=== PATIENT | male | born 1955 | race Caucasian/White ===

== ENCOUNTER 2017-03-05 15:26 | Inpatient (IN) | payer OTHER, MEDICARE ==
[~2017-03-05] VITALS: Ht 185.4 cm; Wt 83.9 kg
[~2017-03-05 15:26] MED LIST: ASPIRIN EC81 M1 PO; ATIVAN0.5 M1 PO; ATIVAN1 MG PO; DEXTROAMPH SACC30 MG PO; ECOTRIN81 MG PO; FOLIC ACID1 M1 PO; LAMICTAL25 M1 PO; LEVOTHYROXINE50 MCG PO; LIPITOR10 M1 PO; METOPROLOL SUCC50 M2 PO; QUETIAPINE FUM100 MG PO; REMERON30 MG PO; VITAMIN B-1100 MG PO; ZITHROMAX Z-PA250 M1 PO
--- NOTE | 2017-03-05 15:39 | NUR ---
PT WAS FOUND ON THE FLOOR BY HIS SISTER, SHE CALLED [phone] THIS IS HIS THIRD FALL IN THE PAST 48 HRS. HE REPORTS TO BE ETOH FREE X 3. HE REPORTS NO ACUTE COMPLAINTS RATHER AN OLD NECK DISCOMFORT RADIATING TO THE RIGHT ARM SECONDARY TO OLD CERVICAL FUSION.
--- NOTE | 2017-03-05 15:43 | NUR ---
MAY CONTACT HIS SISTER AT [phone]
--- NOTE | 2017-03-05 16:03 | NUR ---
LABS SENT (BLUE,SST,LAV,CHASE)
[2017-03-05 16:10] LABS: ABSOLUTE BASOPHIL COUNT 0 /CUMM (0.0-0.2); ABSOLUTE EOSINOPHIL COUNT 0.1 /CUMM (0.0-0.7); ABSOLUTE GRANULOCYTE CT 5.7 /CUMM (1.4-6.5); ABSOLUTE LYMPH COUNT 1.1 /CUMM (1.2-3.4); ABSOLUTE MONOCYTE COUNT 1.2 /CUMM (0.10-0.60); BASOPHIL % 0.2 % (0.0-2.0); GRANULOCYTE % 70.7 % (42.2-75.2); HEMATOCRIT 40.2 % (42-52); MEAN CORPUSCULAR HGB 32.7 PG (27.0-31.0); MEAN CORPUSCULAR HGB CONC 32.8 G/DL (33.0-37.0); MEAN CORPUSCULAR VOLUME 99.6 FL (80.0-94.0); PLATELET COUNT 355 /CUMM (130-400); RBC DISTRIBUTION WIDTH 15.5 % (11.5-14.5); RED BLOOD CELL CT 4.03 /CUMM (4.70-6.10); WHITE BLOOD CELL COUNT 8.1 /CUMM (4.8-10.8)
--- NOTE | 2017-03-05 17:28 | ED GENERAL ADULT ---
History of Present Illness General Chief Complaint: General Adult Stated Complaint: S/P FALL. Source: patient, old records Exam Limitations: no limitations Vital Signs & Intake/Output Vital Signs & Intake/Output Vital Signs Date Time Temp Pulse Resp B/P B/P Pulse O2 O2 Flow FiO2 Mean Ox Delivery Rate 03/05 1931 97.0 76 24 155/89 98 Room Air 03/05 1855 Room Air Room Air 03/05 1747 97.2 78 20 161/91 99 Room Air 03/05 1529 97.4 80 20 139/95 97 Room Air Allergies Coded Allergies: NSAIDS (Non-Steroidal Anti-Inflamma (ULCERS 02/12/16) Reconcile Medications Albuterol Sulfate (Proair Hfa) 90 MCG HFA.AER.AD 2 PUF INH PRN RESPIRATORY ( Reported) Aspirin (Ecotrin*) 81 MG TABLET.DR 81 MG PO DAILY Heart Health Atorvastatin Calcium 40 MG TABLET 1 TAB PO DAILY CHOLESTEROL (Reported) Dextroamphetamine/Amphetamine (Dextroamp-Amphetamin 30 MG Tab) 30 MG TABLET 1 TAB PO BID ADHD (Reported) Folic Acid 1 MG TABLET 1 MG PO DAILY Vitamin Levothyroxine Sodium 50 MCG TABLET 1 TAB PO DAILY THRYOID (Reported) Metoprolol Succinate 50 MG TAB.ER.24H 1 TAB PO BID HEART/BP (Reported) Mirtazapine 30 MG TABLET 2 TAB PO QPM MENTAL HEALTH (Reported) Quetiapine Fumarate 200 MG TABLET 2 TAB PO QPM MENTAL HEALTH (Reported) Sertraline HCl 50 MG TABLET 1 TAB PO DAILY MENTAL HEALTH (Reported) Core Measure Meds Pre-Hospital aspirin Triage Note: PT WAS FOUND ON THE FLOOR BY HIS SISTER, SHE CALLED [phone] THIS IS HIS THIRD FALL IN THE PAST 48 HRS. HE REPORTS TO BE ETOH FREE X 3. HE REPORTS NO ACUTE COMPLAINTS RATHER AN OLD NECK DISCOMFORT RADIATING TO THE RIGHT ARM SECONDARY TO OLD CERVICAL FUSION. Triage Nurses Notes Reviewed? yes Onset: Just prior to arrival Duration: day(s):, intermittent Timing: recent history Injury Environment: home Severity: moderate Modifying Factors: Improves With: rest. Worsens With: movement. HPI: 2 days prior to admission sister reports patient is followed 3 times unable to get off the floor. The patient complains of chronic shoulder neck and back pain. He denies fever chills nausea vomiting diarrhea abdominal pain chest pain shortness breath headache dysuria rash bleeding. He admits to no alcohol over the last 3 days. Past History Travel History Traveled to [place] past 21 day No Medical History Any Pertinent Medical History? see below for history Neurological: seizure EENT: NONE Cardiovascular: CAD, STENT PLACEMENT 2011 Respiratory: obstructive sleep apnea Gastrointestinal: pancreatitis Hepatic: "ALCOHOLIC LIVER DISEASE" Renal: NONE Musculoskeletal: NONE Psychiatric: alcohol dependence, anxiety, depression Endocrine: hypothyroidism History of MRSA: No History of VRE: No History of CDIFF: No Pneumonia Vaccine: 07/12/12 Tetanus Vaccine: 04/18/13 Surgical History Surgical History: CARDIAC STENTS Psychosocial History Who do you live with Patient/Self Services at Home None What is your primary language German Tobacco Use: Current Daily Use Daily Tobacco Use Amount/Type: => 5 Cigarettes daily Family History Family History, If Any: BROTHER FH: COPD (chronic obstructive pulmonary disease) FHx: colon cancer FHx: diabetes mellitus FATHER FH: heart attack Hx Contributory? No Review of Systems Review of Systems Constitutional: Reports: see HPI, weakness. EENTM: Reports: no symptoms. Respiratory: Reports: no symptoms. Cardiovascular: Reports: no symptoms. GI: Reports: no symptoms. Genitourinary: Reports: no symptoms. Musculoskeletal: Reports: see HPI, back pain, joint pain, neck pain. Skin: Reports: no symptoms. Neurological/Psychological: Reports: no symptoms. Hematologic/Endocrine: Reports: no symptoms. Immunologic/Allergic: Reports: no symptoms. All Other Systems: Reviewed and Negative Physical Exam Physical Exam General Appearance: well developed/nourished, alert, awake, anxious, moderate distress Head: atraumatic, normal appearance Eyes: Bilateral: normal appearance, PERRL, EOMI. Ears, Nose, Throat: normal pharynx, normal ENT inspection Neck: normal inspection, supple, limited range of motion, no midline tenderness Respiratory: normal breath sounds, chest non-tender, no respiratory distress, quiet respiration, lungs clear Cardiovascular: regular rate/rhythm, normal peripheral pulses, norml femoral pulses equa Peripheral Pulses: 4+ carotid (R), 4+ carotid (L) Gastrointestinal: normal bowel sounds, soft, non-tender, no organomegaly Back: normal inspection, no vertebral tenderness Extremities: normal inspection, normal capillary refill, limited range of motion Neurologic/Psych: no motor/sensory deficits, awake, alert, oriented x 3, normal gait, normal mood/affect, 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 Skin: normal color, warm/dry, abrasions on R knee, L calf Lymphatic: no anterior cervical abena Core Measures ACS in differential dx? Yes ASA ordered for poss ACS? No-ACS ruled out CVA/TIA Diagnosis: No Severe Sepsis Present: No Septic Shock Present: No Progress Differential Diagnoses I considered the following diagnoses in my evaluation of the patient: Alcohol withdrawal electrolyte imbalance acute MS Plan of Care: Orders Procedure Date/time Status Regular Diet 03/06 B Active OXYGEN SETUP (GEN) 03/05 2001 Active Saline Lock 03/05 2001 Active Admit to inpatient 03/05 2001 Active Vital Signs 03/05 2001 Active Activity/Ambulation 03/05 2001 Active Code Status 03/[address] HEAD WO IV CONTRAST 03/05 1952 Active XRY-PORTABLE CHEST XRAY 03/05 194 Active Add-on Test (ER Only) 03/05 190 Active EKG 03/05 190 Active Add-on Test (ER Only) 03/05 1726 Active TROPONIN LEVEL 03/05 1602 Complete PROLACTIN 03/05 1602 Complete URINE DRUGS OF ABUSE 03/05 1540 Active ETHANOL 03/05 1540 Complete COMPREHENSIVE METABOLIC PANEL 03/05 1540 Complete CBC WITHOUT DIFFERENTIAL 03/05 1540 Complete Current Medications Sig/Edward Start time Last Medication Dose Stop Time Status Admin Morphine Sulfate 4 MG ONCE ONE 03/05 1630 CAN (Morphine) 03/05 1631 Laboratory Tests 03/05/17 1915: Urine Opiates Screen Pending, Methadone Screen Pending, Barbiturate Screen Pending, Ur Phencyclidine Scrn Pending, Amphetamines Screen Pending, U Benzodiazepines Scrn Pending, Urine Cocaine Screen Pending, Urine Cannabis Screen Pending 03/05/17 1602: Anion Gap 15, Estimated GFR > 60, BUN/Creatinine Ratio 30.0 H, Glucose 84, Calcium 8.9, Total Bilirubin 0.8, AST 55, ALT 44, Alkaline Phosphatase 103, Troponin I 0.01, Total Protein 6.4, Albumin 3.5, Globulin 2.9, Albumin/Globulin Ratio 1.2, Prolactin 7.8, CBC w Diff NO MAN DIFF REQ, RBC 4.03 L, MCV 99.6 H, MCH 32.7 H, RDW 15.5 H, MPV 7.0 L, Gran % 70.7, Lymphocytes % 13.6 L, Monocytes % 14.5 H, Eosinophils % 1.0, Basophils % 0.2, Absolute Granulocytes 5.7, Absolute Lymphocytes 1.1 L, Absolute Monocytes 1.2 H, Absolute Eosinophils 0.1, Absolute Basophils 0, PUBS MCHC 32.8 L, Serum Alcohol < 10.0 Radiology Impression: head ct pending CXR Impression: pending Initial ED EKG: normal axis, normal intervals, normal p-waves, normal QRS complex, nonspecific ST T wave chg Comments: Unable to ambulate with assist of 2. Departure Departure Disposition: STILL A PATIENT Condition: Stable Clinical Impression Primary Impression: Frequent falls Secondary Impressions: Alcohol dependence Qualifiers: Substance use status: other alcohol-induced disorder Qualified Code : F10.288 - Alcohol dependence with other alcohol-induced disorder Chronic pain syndrome Multifactorial gait disorder Referrals: NASRIN ROMERO MD (PCP/Family) Departure Forms: Customer Survey General Discharge Information Admission Note Spoke With: DAMIAN KIM MD Documentation of Exam: Documentation of any treatments & extenuating circumstances including Concerns Regarding Discharge (functional status, medication knowledge or non-compliance, living conditions, etc.) that warrant an admission rather than observation: Physical therapy medication adjustment benzodiazepine to prevent alcohol withdrawal continuing care discharge planning analgesia for chronic joint pain Critical Care Note Critical Care Note Critical Care Time: non-applicable
[2017-03-05] MEDS ORDERED: ATORVASTATIN CA40 M1 PO (17:29)
[2017-03-05] MEDS ORDERED: DEXTROAMP-AMPHE30 MG PO (17:29)
[2017-03-05] MEDS ORDERED: SERTRALINE HCL50 MG PO (17:30)
[2017-03-05] MEDS ORDERED: QUETIAPINE FUM200 M1 PO (17:31)
[2017-03-05] MEDS ORDERED: MIRTAZAPINE30 M2 PO (17:31)
[2017-03-05] MEDS ORDERED: PROAIR HFA8.5 GM INH (17:32)
--- NOTE | 2017-03-05 17:56 | NUR ---
PT CONTINUES TO SLEEP WITH NORMAL RR NOTED. PER PROVIDER, PT NOT TO RECEIVE MORPHINE AT THIS TIME.
--- NOTE | 2017-03-05 18:56 | NUR ---
PT ATTEMPTED TO AMBULATE WITH WALKER, UNSTEADY GAIT NOTED. PT REPORTS THAT HE HAS NOT BEEN ABLE TO AMBULATE AT HOME WITH WALKER AND RECENTLY FELL MULTIPLE TIMES IN THE LAST THREE DAYS. REPORTS HE HAS BEEN "CRAWLING" TO GET AROUND AT HOME.
--- NOTE | 2017-03-05 19:27 | NUR ---
ASSUMED PRIMARY CARE. PANTS UNDERWEAR REMOVED, SHIRT, PANTS{SWAETS} SHIRT AND WALLET PLACED IN VALUABLES BAG. HEAD TO TOE; GLASSES ON NO ABRASIONS NOTED TO HEAD OR FACE BILAT ARMS WITH ABRASIONS, REDDENED AREAS NOTED TO BILAT UPPER ARMS AND ELBOWS, SMALL ABRASIONA AT ELBOWS. ABD WITHOUT REDNESS, LUIS DANIEL AREA CLEAN NO REDNESS. ST CATH FOR 200 CCS CONCENTRATED URINE. L EG WITH 2X2 AREA SCABBED OVER ULCERATION TO OUTER ASPECT BELOW KNEE, R LEG WITH 1X2 SCABBED ABRAISED AREA NOTED TO MEDIAL SIDE AND KNEE NONDRAINING. BI;AT HIPS RED NOT OPEN BUTTOCKS RED EXCORIATED NOT OPEN. ALERT MENTATING WELL. NO VISABLE TREMORS.
--- NOTE | 2017-03-05 21:07 | History & Physical ---
EL DOUGHERTY 03/05/177: General Information and HPI MD Statement: I have seen and personally examined SANDIE RODRIGES and documented this H&P. The patient is a 61 year old M who presented with a patient stated chief complaint of [ALCOHOL DETOX]. Source of Information: patient Exam Limitations: no limitations History of Present Illness: 61-year-old male with a past medical history of coronary artery disease status post stent placement in 2011, ADHD, hypothyroidism, depression, alcohol dependence, VERONIKA noncompliant with nocturnal CPAP, was brought to the ER by his sister after he had 3 mechanical falls within the past day. History is obtained from the patient. According to the patient has been having difficult time maintaining his balance. He states that he has no strength in his upper body since October which has been progressively worsening. Over the last few days more so within the past week he's had several falls. Of note, he uses a rolling desk chair for ambulation and his falls for the most part have been mechanical 2/2 to the wheels getting stuck. He denies hitting his head, losing consciousness, chest pain, fever, chills, palpitations, dizziness prior to falls. He does state that he has a normal appetite and has been eating and drinking fine. He does however endorse occasional cough and sputum production that is nonpurulent. Of note he has chronic right shoulder pain and has increased difficulty abducting it. He states that he fell down yesterday and was unable to get up for almost 7-8 hours. He lives by himself and it was not until his sister arrived this morning that she saw him and brought him to the ER. Of note he does have a history of alcohol abuse and states that his last drink was 3 days ago. He denies any seizure-like activities. He is a smoker smoking half pack per day. He drinks about 6 drinks of beer every week. Currently denies suicidal ideation and homicidal ideation. Allergies/Medications Allergies: Coded Allergies: NSAIDS (Non-Steroidal Anti-Inflamma (ULCERS 02/12/16) Home Med list Albuterol Sulfate (Proair Hfa) 90 MCG HFA.AER.AD 2 PUF INH PRN RESPIRATORY ( Reported) Aspirin (Ecotrin*) 81 MG TABLET. 81 MG PO DAILY Heart Health Atorvastatin Calcium 40 MG TABLET 1 TAB PO DAILY CHOLESTEROL (Reported) Dextroamphetamine/Amphetamine (Dextroamp-Amphetamin 30 MG Tab) 30 MG TABLET 1 TAB PO TID ADHD (Reported) Folic Acid 1 MG TABLET 1 MG PO DAILY Vitamin Levothyroxine Sodium 50 MCG TABLET 1 TAB PO DAILY THRYOID (Reported) Metoprolol Succinate 50 MG TAB.ER.24H 1 TAB PO BID HEART/BP (Reported) Mirtazapine 30 MG TABLET 2 TAB PO QPM MENTAL HEALTH (Reported) Quetiapine Fumarate 200 MG TABLET 2 TAB PO QPM MENTAL HEALTH (Reported) Sertraline HCl 50 MG TABLET 1 TAB PO DAILY MENTAL HEALTH (Reported) Compliance With Home Meds: GOOD Past History Travel History Traveled to [place] past 21 day No Medical History Neurological: seizure EENT: NONE Cardiovascular: CAD, STENT PLACEMENT 2011 Respiratory: obstructive sleep apnea Gastrointestinal: pancreatitis Hepatic: "ALCOHOLIC LIVER DISEASE" Renal: NONE Musculoskeletal: NONE Psychiatric: alcohol dependence, anxiety, depression Endocrine: hypothyroidism History of MRSA: No History of VRE: No History of CDIFF: No Pneumonia Vaccine: 07/12/12 Tetanus Vaccine: 04/18/13 Surgical History Surgical History: CARDIAC STENTS Past Family/Social History Family History Relations & Conditions if any BROTHER FH: COPD (chronic obstructive pulmonary disease) FHx: colon cancer FHx: diabetes mellitus FATHER FH: heart attack Psychosocial History Where do you live? Home Who Do You Live With? self Services at Home: None Primary Language: Malawian Functional Ability ADLs Independent: dressing, eating, toileting, bathing. Ambulation: desk chair Review of Systems Review of Systems Constitutional: Reports: chills, weakness. Denies: diaphoresis, fever, malaise. EENTM: Denies: visual changes. Cardiovascular: Denies: chest pain, edema, orthopena, palpitations, peripheral edema, syncope. Respiratory: Reports: cough, sputum production. Denies: hemoptysis, orthopnea, short of breath, stridor, wheezing. GI: Denies: abdominal pain, constipation, diarrhea, nausea, changes in stool, vomiting. Genitourinary: Reports: no symptoms. Musculoskeletal: Reports: joint pain, neck pain. Denies: back pain, joint swelling. Neurological/Psychological: Reports: weakness. Denies: headache, numbness, paresthesia, tingling, tremors. Exam & Diagnostic Data Last 24 Hrs of Vital Signs/I&O Vital Signs Date Time Temp Pulse Resp B/P B/P Pulse O2 O2 Flow FiO2 Mean Ox Delivery Rate 03/05 2122 97.4 100 20 164/82 99 Room Air 03/05 1931 97.0 76 24 155/89 98 Room Air 03/05 1855 Room Air Room Air 03/05 1747 97.2 78 20 161/91 99 Room Air 03/05 1529 97.4 80 20 139/95 97 Room Air Intake & Output 03/05 1600 03/05 0800 03/05 0000 Intake Total Output Total Balance Patient 185 lb Weight Weight Reported by Patient Measurement Method Physical Exam General Appearance Alert, Oriented X3, Cooperative Skin HAS A 3CM X4CM RUG MCDANIEL LOCATED ALONG TH EMEDIAL ASPECT OF TH ERIGHT KNE AND ANTREOLATERAL ASPECT OF LEFT TIBIA. MULTIPLE SKIN ABRASIONS ALONG THE [place]. HAS A RUG BURN MEASURING 2CM X3CM LOCATED ALONG THE RIGHT WRIST JOINT. Skin Temp/Moisture Exam: Warm/Dry HEENT Atraumatic, PERRLA, EOMI, DRY MUCOUS MEMBRANES Neck Supple, No JVD, No thryomegaly, +2 Carotid Pulse wo Bruit, No LAD Cardiovascular Regular Rate, Normal S1, Normal S2, No Murmurs Lungs Clear to Auscultation, Normal Air Movement Abdomen Normal Bowel Sounds, Soft, No Tenderness Neurological Normal Speech, Normal Tone, Sensation Intact, Cranial Nerves 3-12 NL, Reflexes 2+, STRENGTH 3/5 IN RUE, 4/5 IN LUE, 4/5 IN LE'S Extremities No Edema, No Tenderness/Swelling, HAS AMPUTATION OF LEFT GREAT TOE Vascular Normal Pulses, Pulses Symmetrical Last 24 Hrs of Labs/Lex: Laboratory Tests 03/05/17 1915: Urine Opiates Screen < 100.00, Methadone Screen 68, Barbiturate Screen < 60, Ur Phencyclidine Scrn < 6.00, Amphetamines Screen > 1450 H, U Benzodiazepines Scrn < 85, Urine Cocaine Screen < 50, Urine Cannabis Screen < 5.00 03/05/17 1602: Anion Gap 15, Estimated GFR > 60, BUN/Creatinine Ratio 30.0 H, Glucose 84, Calcium 8.9, Magnesium 1.6, Total Bilirubin 0.8, AST 55, ALT 44, Alkaline Phosphatase 103, Creatine Kinase 662 H, Troponin I 0.01, Total Protein 6.4, Albumin 3.5, Globulin 2.9, Albumin/Globulin Ratio 1.2, Vitamin B12 Pending, Folate Pending, TSH Pending, Prolactin 7.8, CBC w Diff NO MAN DIFF REQ, RBC 4.03 L, MCV 99.6 H, MCH 32.7 H, RDW 15.5 H, MPV 7.0 L, Gran % 70.7, Lymphocytes % 13.6 L, Monocytes % 14.5 H, Eosinophils % 1.0, Basophils % 0.2, Absolute Granulocytes 5.7, Absolute Lymphocytes 1.1 L, Absolute Monocytes 1.2 H, Absolute Eosinophils 0.1, Absolute Basophils 0, PUBS MCHC 32.8 L, Serum Alcohol < 10.0 Diagnostic Data EKG Results Normal sinus rhythm with a heart rate of 76, WV interval of 140, Q waves in II, III and aVF with normal axes no ST-T changes with a QTC of 450. CXR Results FINDINGS: Normal cardiomediastinal silhouette and pulmonary vascularity. Clear lungs. No pleural effusions or pneumothorax. Old healed right seventh rib fracture. Deformity of the right humeral head, a new finding since the comparison chest x-ray. IMPRESSION: No acute cardiopulmonary findings. Other Results SERVICE DATE: 03/05/17 EXAM TYPE: CAT - CT HEAD WO IV CONTRAST FINDINGS: There is no evidence of acute intracranial hemorrhage or territorial infarction. No abnormal mass effect or midline shift is seen. Walker to white matter differentiation is well preserved. No extra-axial fluid collections are identified. The ventricles are normal in size. There is no abnormal attenuation within the brain parenchyma. The osseous structures and soft tissues are normal. The mastoid air cells and visualized portions of the paranasal sinuses are well aerated. IMPRESSION: No acute intracranial abnormality. Assessment/Plan Assessment: 61-year-old male with a past medical history of alcohol dependence/alcohol withdrawal questionable seizures, coronary artery disease status post stent placement in 2011, history of proximal A. fib on anticoagulation, hypothyroidism , hyperlipidemia, obstructive sleep apnea, depression, history of pancreatitis, seizure disorder and alcoholic liver disease was sent to the ED after he had a fall. Vitals on admission blood pressure 155/89, respiratory rate 24, pulse 76, afebrile saturating 98% on room air. Labs pertinent for normal white blood cell count of 8100, macrocytic anemia with an H&H of 13.2/40.2, MCV of 99.6 with a normal platelet count of 355,000. Chemistries revealed a sodium of 140, potassium of 3.5, bicarbonate of 23, anion gap of 15, BUN 15 with a creatinine of 0.5. Serum glucose of 84. And magnesium of 1.6. LFTs unremarkable with an AST/AST of 55/44, total bili of 0.8, CK elevated to 662 with first set of troponin negative at less than 0.01. Serum prolactin was within normal limits at 7.8. U tox was positive for amphetamines, and his serum alcohol level less than 10. A chest x-ray Normal cardiomediastinal silhouette and pulmonary vascularity. Clear lungs. No pleural effusions or pneumothorax. Old healed right seventh rib fracture. Deformity of the right humeral head, a new finding since the comparison chest x-ray. CT head without IV contrast showed no acute intracranial abnormality EKG revealed: Normal sinus rhythm with a heart rate of 76, WV interval of 140, Q waves in II, III and aVF with normal axes no ST-T changes with a QTC of 450. Echocardiogram done on 02/15/2016 revealed normal left ventricular ejection fraction estimated at 55-60%, hypokinetic anterior wall, moderate aortic sclerosis, no valvular stenosis, physiologic pericardial effusion. Assessment and plan Admit patient to general medicine for physical deconditioning # Generalized weakness and physical deconditioning in the setting of frequent mechanical falls. Most likely secondary to inability to maneuver his R shoulder PT OT eval in a.m. Of note patient lives by himself and benefits from being in a nursing facility. Check for orthostatic vitals Hydrate patient for now with normal saline 75 MLS x1. #Left and right shoulder pain Follow-up x-rays of both shoulders F/U orthopedic consult in a.m. #Alcohol dependence Last drink was 3 days ago reportedly. Of note his serum alcohol level is less than 10 Start him on Ativan 2 mg every 6 Continue on Ativan per CIWA Continue folic acid supplementation #Coronary artery disease Continue aspirin 81 mg daily, metoprolol succinate 50 mg twice a day, atorvastatin 40 mg daily. #Hypothyroidism Continue on levothyroxine 0.05 mg daily Follow-up TSH and free T4 #Megaloblastic anemia Most likely secondary to nutritional deficiency from vitamin B12 and folic acid Follow-up TSH, and vitamin B12 and folic acid Continue on folic acid supplementations #History of depression Continue Zoloft 50 mg daily, Seroquel 200 mg at bedtime, mirtazapine 60 mg at bedtime #ADHD Patient is on dextroamphetamine/amphetamines 30 mg 3 times a day Of note pharmacy does not carry. Have patient recanted and from home. - Diet Heart healthy DVT prophylaxis Heparin 5000 international units 3 times a day subcutaneous CODE STATUS Full code As Ranked By This Provider Problem List: 1. Frequent falls 2. Alcohol dependence Qualifiers Substance use status: other alcohol-induced disorder Qualified Code: F10.288 - Alcohol dependence with other alcohol-induced disorder Core Measures/Miscellaneous Acute Coronary Syndrome ACS Diagnosis: No Cerebrovascular Accident CVA/TIA Diagnosis: No Congestive Heart Failure CHF Diagnosis: No Venous Thromboembolism VTE Risk Factors: Age > 40 No [facility] VTE prophylaxis d/t: No contraindications No VTE Pharm Prophylaxis d/t: No contraindications VTE Diagnosis: No VTE Type: NONE VTE Confirmed by (Test): NONE Severe Sepsis Severe Sepsis Present: No Septic Shock Septic Shock Present: No Miscellaneous Documentation Attending Case Discussed With: Dr. Warner Primary Care Physician: NASRIN ROMERO MD Patient sees these Specialists - Cardio Dr. Espinoza - Ortho Dr. Christian Bañuelos in [facility] Level of Patient Care: General Medicine Consults Needed: Consulting Specialty: Orthopedics Resident Review Statement Resident Statement: admitted by resident DAMIAN KIM 03/06/17 0129: Attending MD Review Statement Attending Statement Attending MD Statement: examined this patient, discuss w/resident/PA/CARPENTER SUPERVISOR, agreed w/resident/PA/CARPENTER SUPERVISOR, reviewed EMR data (avail), reviewed images, amended to note Attending Assessment/Plan: CC: Falls PMH: Alcoholism, questionable seizures, CAD S/P stent, paroxysmal A. fib not on anticoagulation, hypothyroidism, HLD, VERONIKA not on CPAP, depression, ADHD Patient's sister called 911 after she found him on the floor. According to patient he fell at least 3 times in last 2-3 days, describes this as a mechanical fall, he uses a rolling desk chair at home for ambulation, it slid and got stuck and then he fell down. Because his right shoulder is very painful and he cannot move it he could not push himself up and had to crawl in. Today the when he fell, he could not even get up so he called his sister. He denies any loss of consciousness, palpitations, chest pain at the time of fall. Heavy alcohol drink, last used 3 days back according to him. According to him "I have bad right shoulder since long and now it's getting worse can't even move, now neck hurts and left shoulder started hurting". Vitals: Afebrile, pulse, RRR, blood pressure, O2 saturation within acceptable range On exam: A O 3, cooperative, no acute distress, neck supple, JVD normal, no lymphadenopathy, mucosa moist, no dependent edema. CVS: S1-S2, RRR. RS: Clear to auscultate bilaterally. Abdomen: Soft, NT, ND, bowel sounds present. Patient has multiple superficial lacerations and abrasions in different stages of healing without signs of infection. Strength bilateral lower extremity 5/5, left upper extremity strength intact, mild limitation ROM on left shoulder, left elbow and wrist movement intact. Right shoulder severely restricted movements for abduction flexion, joint deformity, range of motion intact in elbow and wrist on right, medial aspect of right wrist has a superficial abrasion with mild surrounding redness and bony tenderness. Labs: CBC, BMP, LFT, troponin unremarkable CT head and CXR 1. No acute intracranial abnormality. 2. No acute cardiopulmonary findings. On 02/17/2017: MRI cervical spine 1. There has been interval development of anterolisthesis of C5 on C6. There is severe right and moderate left foraminal narrowing. There is no spinal cord compression. 2. There has been interval increase in the disc protrusions at C3-C4 and C4-C5. There is compression of the spinal cord at both these levels. There is moderate central stenosis at C3-C4 and [id number] central stenosis at C4-C5. 3. There is multilevel foraminal narrowing which appears most severe at C3-C4 and C4-C5, with milder narrowing at multiple other levels as described above. 4. There is equivocal signal within the spinal cord at C4-C5, which may be consistent with developing myelomalacia. 5. There are stable changes from ACDF at C6-C7. MRI right shoulder 1. Humeral head resorption with associated osseous fragments, diffuse proximal humerus and superior glenoid marrow edema, and a large joint effusion with synovitis/debris. These findings could be the sequela of a neuropathic joint, posttraumatic resorption, or a septic joint. 2. Supraspinatus and infraspinatus tendinosis. Subscapularis tendinosis with articular surface partial tearing. 3. Proximal biceps tendinosis. 4. Severe acromioclavicular osteoarthritis and lateral subacromial spurring. Subacromial subdeltoid bursitis. 5. Diffuse degenerative tearing of the labrum. A and P Patient had 3 mechanical falls, no loss of consciousness, no syncopal or presyncopal episodes. Patient is unable to get up from the floor because of severe shoulder pain left more than right. Right shoulder has limited ROM, and above mentioned MRI findings. + Intractable shoulder pain + Mechanical fall + Alcoholism + right wrist medial aspect mild redness and bony tenderness + History of seizure, CAD, paroxysmal A. fib, hypothyroidism, HLD, VERONIKA not on CPAP, depression and ADHD - Admit to general medicine - Advance diet as tolerated - Continue gentle hydration for 1-1.5 then DC fluids - Orthopedic consult in a.m. for severe right shoulder pain - OT PT evaluation - Scheduled and when necessary Ativan for alcohol withdrawal according to CIWA protocol - Nutritional supplementation with thiamine and folic acid - X-ray right shoulder, right wrist - Continue all his home medications - Patient will need replacement in rehabilitation as he is unable to take care of himself, cannot sit up without assistance secondary to shoulder pain. - DVT prophylaxis with Lovenox, adequate pain control
--- NOTE | 2017-03-05 21:29 | NUR ---
MEAL TRAY GIVEN
--- NOTE | 2017-03-05 21:33 | RADIOLOGY REPORT ---
EXAMINATION: XR PORTABLE CHEST CLINICAL INFORMATION: Pneumonia, weakness COMPARISON: 02/15/2016 x-ray TECHNIQUE: Portable frontal view of the chest was obtained. FINDINGS: Normal cardiomediastinal silhouette and pulmonary vascularity. Clear lungs. No pleural effusions or pneumothorax. Old healed right seventh rib fracture. Deformity of the right humeral head, a new finding since the comparison chest x-ray. IMPRESSION: No acute cardiopulmonary findings.
--- NOTE | 2017-03-05 21:43 | NUR ---
EATING DINNER PER DR LINDSEY, HOUSESTAFF AT BEDSIDE, REQUEST THAT CT WAIT UNTIL EVAL COMPLETE.
--- NOTE | 2017-03-05 22:18 | NUR ---
BED ASSIGNMENT [id number]
--- NOTE | 2017-03-05 22:19 | NUR ---
REPORT TO MARIFER LEPE TO HAVE AT 2200 MEDS THEN CAN GO UP, PHARMACY AWARE, BUSY MIXING ANNABELAN
--- NOTE | 2017-03-05 22:58 | NUR ---
PT AT CT WILL MEDICATE AND THEN TRANSFER TO FLOOR.
--- NOTE | 2017-03-05 23:23 | CT SCAN REPORT ---
EXAMINATION: CT HEAD WITHOUT CONTRAST CLINICAL INFORMATION: Frequent falls. Weakness. COMPARISON: Noncontrast head CT 07/19/2016. TECHNIQUE: Contiguous axial imaging was performed from the skull base to vertex without intravenous administration of contrast. DLP: 711 mGy-cm FINDINGS: There is no evidence of acute intracranial hemorrhage or territorial infarction. No abnormal mass effect or midline shift is seen. Walker to white matter differentiation is well preserved. No extra-axial fluid collections are identified. The ventricles are normal in size. There is no abnormal attenuation within the brain parenchyma. The osseous structures and soft tissues are normal. The mastoid air cells and visualized portions of the paranasal sinuses are well aerated. IMPRESSION: No acute intracranial abnormality.
[2017-03-06] VITALS: BP 147/76
--- NOTE | 2017-03-06 01:32 | Admission Certification ---
Admission Certification Certification Statement - As attending physician, I certify that at the time of - admission, based on clinical presentation, severity of - symptoms, need for further diagnostic testing and - therapeutic interventions, and risk of adverse outcomes - without in-hospital treatment, in my clinical assessment, - this patient requires an acute hospital stay for a minimum - of two nights or longer. I have also considered psychsocial - factors such as support system, advanced age, financial - issues, cognitive issues, and failed out-patient treatments, - past re-admission history, safety of patient, and lack of - compliance as applicable. Specific rationale supporting this admission is: Intractable right shoulder pain, related limited ambulation
--- NOTE | 2017-03-06 02:46 | NUR ---
PT ARRIVED TO FLOOR AT 23OO VIA STRETCHER WITH DISTRIBUTION STAFF. PT A/OX3, RA, BP 147/76 P 101 T 98.4 R 18 SPO2 94%. MULTIPLE ABRASIONS TO ELBOWS, ARMS, AND KNEES. SCABS TO L AND R KNEE WITH 4X4 LEIA. NECROTIC SPOTS TO R GREAT TOE AND 2ND TOE, L 2ND TOE AND GREAT TOE AMPT. NONBLANCHABLE AREAS TO BOTTOCK AND KELSIE HIPS. PT C/O PAIN 9/10 TO R SHOULDER (SEE EMAR). IVF PER ORDER, ALPS PER ORDER, BED ALARM IN PLACE, CALL REY IN REACH. WILL CONTINUE TO MONITOR
[2017-03-06 04:00] VITALS: BP 138/72
[2017-03-06 06:53] VITALS: BP 111/57
[2017-03-06 07:53] LABS: ABSOLUTE BASOPHIL COUNT 0 /CUMM (0.0-0.2); ABSOLUTE EOSINOPHIL COUNT 0.2 /CUMM (0.0-0.7); ABSOLUTE GRANULOCYTE CT 3.1 /CUMM (1.4-6.5); ABSOLUTE LYMPH COUNT 1.8 /CUMM (1.2-3.4); ABSOLUTE MONOCYTE COUNT 1.2 /CUMM (0.10-0.60); BASOPHIL % 0.5 % (0.0-2.0); EOSINOPHIL % 3.1 % (0-5); HEMATOCRIT 37.6 % (42-52); MEAN CORPUSCULAR HGB 32.7 PG (27.0-31.0); MEAN CORPUSCULAR HGB CONC 32.8 G/DL (33.0-37.0); MEAN CORPUSCULAR VOLUME 99.6 FL (80.0-94.0); MEAN PLATELET VOLUME 7.6 FL (7.4-10.4); PLATELET COUNT 325 /CUMM (130-400); RBC DISTRIBUTION WIDTH 15.1 % (11.5-14.5); RED BLOOD CELL CT 3.78 /CUMM (4.70-6.10); WHITE BLOOD CELL COUNT 6.3 /CUMM (4.8-10.8)
--- NOTE | 2017-03-06 09:24 | PN- Orthopedic ---
Surgical Brief Attending Note Brief Attending Note: Orthopedics was called for consult on this patient for right shoulder pain. This patient is well-known to [facility] and is being followed by my partner Dr. Phu Espinoza. In fact Dr. Espinoza ordered an MRI 2 weeks ago his right shoulder and has seen him since that. At this point there is no need for inpatient consultation or intervention for his right shoulder pain. He has a chronic problem in the right shoulder consisting of severe erosion of the gleno humeral joint as well as tenderness and soft tissue problems. This patient be managed for his right shoulder pain as an outpatient.
--- NOTE | 2017-03-06 10:48 | RADIOLOGY REPORT ---
EXAMINATION: CR SHOULDER, RIGHT CR RIGHT WRIST CLINICAL INFORMATION: Swelling and erythema of right wrist. Evaluate for fracture. Right shoulder pain and difficulty abduction. Evaluate for fracture. COMPARISON: Right shoulder MRI scan dated 02/17/2017. Right shoulder films dated 11/26/2016. Right hand films dated 05/08/2009. TECHNIQUE: Three views of the right shoulder. 4 views of the right wrist. FINDINGS: RIGHT SHOULDER: Again seen is marked resorption or possible resection of the articular surface of the right humeral head with abnormal widening of the glenohumeral joint space seen. Small bone fragment is seen along the posterior and inferior margin of the glenohumeral joint. The acromioclavicular joint remains intact and demonstrates minimal bursal surface spurring and moderate non bursal surface spurring. Old healed fracture deformity of a mid lateral right rib is noted (likely the seventh rib). RIGHT WRIST: Normal alignment. Prominent soft tissue swelling about the wrist. No acute fracture or dislocation. Slight widening of the scapholunate interval seen, suggestive of scapholunate ligament tear, of uncertain chronicity. No prior wrist films are available for comparison and positioning on the previous right hand films does not allow comparison for interval change. There is mild degenerative spurring seen at the first and fifth carpometacarpal joints, progressed when compared to 2008. IMPRESSION: 1. Marked resorption versus resection of the articular surface of the right humeral head is seen. The appearance has progressed when compared to 11/26/2016 but is similar to the MRI scan from 02/17/2017. Please correlate with patient's clinical/surgical history. 2. Mild degenerative changes at the right acromioclavicular joint. 3. Prominent soft tissue swelling about the wrist with no evidence of acute fracture or dislocation. 4. Suspect subtle scapholunate ligament tear. 5. Mild degenerative changes in the right first and fifth carpometacarpal joints.
[2017-03-06 11:38] VITALS: BP 118/68
[2017-03-06 14:14] VITALS: BP 118/68
--- NOTE | 2017-03-06 16:25 | PN- Att Addend ---
Attending Addendum Attending Brief Note Patient seen and examined. Resting comfortably and not in any acute distress. No issues reported by nursing staff. He does not appear agitated or anxious. He admits to shoulder pain but states that this is chronic. Orthopedic consultation appreciated patient shoulder pain is secondary to chronic disease for which he follows up as an outpatient. His CIWA has been 0 overnight.Vital Signs Date Time Temp Pulse Resp B/P B/P Pulse O2 O2 Flow FiO2 Mean Ox Delivery Rate 03/06 1601 75 96 05/07 1428 80 95 05/07 1414 98.5 77 20 118/68 95 05/07 1138 97.7 77 20 118/68 96 05/07 1137 79 98 05/07 1118 87 111/57 05/07 1109 Room Air Room Air 05/07 0653 97.6 87 20 111/57 95 Room Air 05/07 0400 98 138/72 05/07 0000 98.4 101 18 147/76 94 Room Air 05/06 2300 97.5 90 22 152/80 05/06 2258 97.5 90 22 152/80 98 05/06 2122 97.4 100 20 164/82 99 Room Air 05/06 1931 97.0 76 24 155/89 98 Room Air 05/06 1855 Room Air Room Air 05/06 1747 97.2 78 20 161/91 99 Room Air Gen. appearance: Not in acute distress Heart: S1-S2 regular Lungs: Clear bilaterally Abdomen: Soft and nontender Extremities: No pedal edema Skin: Intact Problems: 1. Mechanical fall 2. Shoulder pain; chronic 3. Atrial fibrillation Plan: -Patient shows no evidence of local withdrawal at present. Continue CIWA protocol. -Physical therapy evaluation in the morning. -His shoulder pain is chronic according to the orthopedic service. His continue follow-up as an outpatient. -Continue current pain regimen.
--- NOTE | 2017-03-06 21:00 | NUR ---
ATTEMPTED TO PLACE PT ON [place] MATTRESS AND MOTOR WOULD NOT STAY ON. ATTEMPTS TO FIX UNSUCCESSFUL. WILL NOTIFY [employer] AND HAVE NEW MATTRESS DELIVERED.
[2017-03-06 21:17] VITALS: BP 148/82
[2017-03-07 04:00] VITALS: BP 120/60
[2017-03-07 06:20] VITALS: BP 181/94
--- NOTE | 2017-03-07 06:20 | NUR ---
NURSING NOTE: MANUAL BP BY MST 160/100. RECHECKED WITH AUTOCUFF, BP 181/94 P 74. OTHER VSS, PATIENT IN NO ACUTE DISTRESS. MD DANIELLE PAGED AND TEXT PAGED TO BE MADE AWARE. AWAITING MD REPLY/FURTHER ORDERS AT THIS TIME. WILL CONTINUE TO MONITOR.
[2017-03-07 06:38] VITALS: BP 160/100
[2017-03-07 06:44] VITALS: BP 148/84
--- NOTE | 2017-03-07 12:40 | PN- Housestaff ---
BARBARA RUGGIERO 03/07/17 1240: Subjective Follow-up For: Mechanical fall Exacerbation of chronic right Shoulder pain Alcohol abuse Subjective: No overnight events. This morning patient is sleepy. He is complaining of 8/10 right shoulder pain. No events of agitation or delirium. Review of Systems Constitutional: Reports: see HPI. Objective Last 24 Hrs of Vital Signs/I&O Vital Signs Date Time Temp Pulse Resp B/P B/P Pulse O2 O2 Flow FiO2 Mean Ox Delivery Rate 03/07 1437 97.8 73 20 140/81 96 Room Air 03/07 1424 Room Air Room Air 03/07 1418 Room Air Room Air 03/07 0942 76 146/78 03/07 0822 20 96 Room Air 03/07 0755 69 98 03/07 0644 148/84 03/07 0638 98.9 73 18 160/100 97 CPAP 03/07 0620 74 181/94 03/07 0400 73 20 120/60 03/07 0039 87 94 03/06 2236 92 96 03/06 2117 98.3 73 16 148/82 96 Room Air 03/06 2114 73 148/82 Intake & Output 03/07 1600 08 0800 03/07 0000 Intake Total 910 250 Output Total 700 Balance 210 250 Intake, IV 10 10 Intake, Oral 900 240 Number 0 0 Bowel Movements Output, Urine 700 Physical Exam General Appearance: Alert, Oriented X3, Cooperative, No Acute Distress Neck: Supple Cardiovascular: tacycardia Lungs: Clear to Auscultation Abdomen: Normal Bowel Sounds, Soft, No Tenderness Neurological: Sensation Intact, Cranial Nerves 3-12 NL, limited range of motion of right shoulder joint because of pain Extremities: No Edema Current Medications: Current Medications Sig/Edward Start time Last Medication Dose Route Stop Time Status Admin Acetaminophen 650 MG Q6P PRN 03/05 2200 AC PO Aspirin Buffered 81 MG DAILY 03/06 1000 AC 03/07 PO 0942 Atorvastatin Calcium 40 MG DAILY 03/05 2146 AC 03/07 PO 0942 Folic Acid 1 MG DAILY 03/06 1000 AC 03/07 PO 0942 Heparin Sodium 5,000 UNIT Q8 03/05 2200 AC 03/07 (Porcine) SC 1422 Levothyroxine Sodium 0.05 MG DAILY AC 03/06 0700 AC 03/07 PO 0514 Lorazepam 1 MG Q12H 03/07 1700 AC PO Lorazepam 1 MG Q8 03/07 1400 DC PO Lorazepam 2 MG Q6H 03/07 0400 DC 03/07 PO 0514 Lorazepam 2 MG Q6 03/05 2359 DC 03/06 PO 2113 Lorazepam 0 Q1P PRN 03/05 2315 AC IV Metoprolol Succinate 50 MG BID 03/05 2200 AC 03/07 PO 0942 Mirtazapine 60 MG QPM 03/05 2200 AC 03/06 PO 2114 Oxycodone HCl 5 MG Q6P PRN 03/05 2200 AC 03/07 PO 1123 Oxycodone/ 2 TAB Q6P PRN 03/05 2200 AC 03/05 Acetaminophen PO 2336 Patient Medication 1 ED .STK-MED ONE 03/07 1403 DC Teaching ED 03/07 1404 Quetiapine Fumarate 200 MG QPM 03/05 2200 AC 03/06 PO 2114 Sertraline HCl 50 MG DAILY 03/05 2147 AC 03/07 PO 0942 Thiamine HCl 100 MG DAILY 03/06 1000 AC 03/07 PO 0942 Orders CIWA Score (last 24 hrs): 0 Assessment/Plan Assessment: He is 61-year-old man with past medical history of coronary artery disease status post stent in 2011, paroxysmal A. fib not on any anticoagulation because of history of recurrent falls, alcohol abuse, hypothyroidism, hyperlipidemia, obstructive sleep apnea not on CPAP, depression has been admitted on general medicine floor for: 1. Recurrent falls (mechanical) 2. Intractable right shoulder pain 3. Alcohol withdrawal. His last drink 3 days prior to admission per patient 4. Generalized weakness and gait instability PLAN * Monitor vitals closely * Continue CIWA protocol * Continue Ativan as needed per CIWA and scheduled Ativan * Watch for DTs * Continue multivitamins/folic acid/thiamine * Adequate pain management * Ortho consult appreciated. Definite management of right shoulder pain as an outpatient * Continue Physical therapy * Continue other home medications * Needs short-term rehabilitation upon discharge * Subcutaneous Lovenox for DVT prophylaxis * Heart healthy diet * Full code Problem List: 1. Frequent falls 2. Alcohol dependence Pain Ratin Pain Location: right shoulder Pain Goal: Pain 4 or less Pain Plan: percocet, roxicodone, Tomorrow's Labs & Rationales: none DVT/Prophylaxis: pharmacological MARKUS JOHNSON MD 05/08/17 1530: Attending MD Review Statement Attending Statement Attending MD Statement: examined this patient, discuss w/resident/PA/CONTINUOUS DRYOUT OPERATOR, agreed w/resident/PA/CONTINUOUS DRYOUT OPERATOR, reviewed EMR data (avail) Attending Assessment/Plan: 61M PMH CAD s/p stent 2011, ADHD, hypothyroidism, depression, alcohol dependence , VERONIKA noncompliant with nocturnal CPAP admitted for recurrent falls and gait instability. Complains of right shoulder pain and has a history of severe right shoulder joint degeneration for which he follows with Dr. Espinoza of orthopedics. Had appointment to see Dr. Varghese of neurology today for his falls and instability, which have worsened over the past 6 months. Otherwise no complaints, neurological exam is normal at this time, labs reviewed. 1. Recurrent falls 2. Right shoulder joint degeneration 3. Gait instability Plan - Continue on general medicine - Outpatient neurology and orthopedic follow up - Continue current medications - No evidence of alcohol withdrawal - DVT PPx - Anticipated discharge tomorrow. Please send CMR to pharmacy for review.
[2017-03-07 14:37] VITALS: BP 140/81
--- NOTE | 2017-03-07 20:29 | NUR ---
AT 1900, [facility] RESPONSE CALLED DUE TO PATIENT ROLLING OFF THE FLOOR. MST WAS NOT ABLE TO PREVENT THE PATIENT FROM FALLING BUT WAS ABLE TO CATCH PATIENT FROM HITTING HEAD ON THE FLOOR. BED ALARM WAS ON. CALL REY WAS WITHIN REACH. PT DROWSY AT BASELINE. NO INJURIES NOTED. BP 150/88 HR 72, PATIENT SATING 94% ON ROOM AIR. BS 162. PATIENT LIFTED BACK UP TO BED. BED ALARM ON. CALL REY WITHIN REACH. PT RESTING COMFORTABLY
[2017-03-07 23:09] VITALS: BP 152/84
[2017-03-08 06:42] VITALS: BP 135/87
--- NOTE | 2017-03-08 09:17 | PN- Housestaff ---
BARBARA RUGGIERO 03/08/17 0917: Subjective Follow-up For: Mechanical fall Exacerbation of chronic right Shoulder pain Alcohol abuse Subjective: Patient was on AutoPap last night. This morning he feels that his right shoulder pain is better. Offers no complaints. Review of Systems Constitutional: Reports: see HPI. Objective Last 24 Hrs of Vital Signs/I&O Vital Signs Date Time Temp Pulse Resp B/P B/P Pulse O2 O2 Flow FiO2 Mean Ox Delivery Rate 03/08 1506 98.0 97 20 142/74 94 Room Air 03/08 0918 138/80 03/08 0855 22 95 Room Air 03/08 08 95 Room Air 03/08 0642 98.1 81 20 135/87 98 CPAP 03/08 0017 83 96 03/07 2309 98.4 73 18 152/84 97 CPAP 03/07 2230 78 97 03/07 2148 150/88 Intake & Output 03/08 1600 03/08 0800 05 0000 Intake Total 810 250 400 Output Total 450 200 Balance 360 250 200 Intake, IV 10 10 Intake, Oral 800 240 400 Number 0 0 Bowel Movements Output, Urine 450 200 Physical Exam General Appearance: Alert, Oriented X3, Cooperative, No Acute Distress Neck: Supple Cardiovascular: tachycardia Lungs: Clear to Auscultation Abdomen: Normal Bowel Sounds, Soft, No Tenderness Extremities: No Edema, limited range of motion of right shoulder joint because of pain Current Medications: Current Medications Sig/Edward Start time Last Medication Dose Route Stop Time Status Admin Acetaminophen 650 MG Q6P PRN 03/05 2200 AC PO Aspirin Buffered 81 MG DAILY 03/06 1000 AC 03/08 PO 0918 Atorvastatin Calcium 40 MG DAILY 03/05 2146 AC 03/08 PO 0918 Enoxaparin Sodium 40 MG DAILY 03/08 1000 AC 03/08 SC 0918 Folic Acid 1 MG DAILY 03/06 1000 AC 03/08 PO 0918 Heparin Sodium 5,000 UNIT Q8 03/05 2200 DC 03/07 (Porcine) SC 1422 Levothyroxine Sodium 0.05 MG DAILY AC 03/06 0700 AC 03/08 PO 0546 Lorazepam 1 MG ONE ONE 03/08 0815 DC PO 03/08 0816 Lorazepam 1 MG Q12H 03/07 1700 DC 03/08 PO 0546 Lorazepam 0 Q1P PRN 03/05 2315 AC IV Metoprolol Succinate 50 MG BID 03/05 2200 AC 03/08 PO 917 Mirtazapine 60 MG QPM 03/05 2200 AC 03/07 PO 2147 Oxycodone HCl 5 MG .STK-MED ONE 03/07 1633 DC PO 03/07 1634 Oxycodone HCl 5 MG Q6P PRN 03/050 AC 03/07 PO 1637 Oxycodone/ 2 TAB Q6P PRN 03/05 2200 AC 03/05 Acetaminophen PO 2336 Polyethylene Glycol 17 GM DAILY PRN 03/08 900 AC 03/08 PO 917 Quetiapine Fumarate 200 MG QPM 03/05 2200 AC 03/07 PO 214 Senna/Docusate Sodium 1 TAB BID PRN 03/08 900 AC PO Sertraline HCl 50 MG DAILY 03/05 2147 AC 03/08 PO 917 Thiamine HCl 100 MG DAILY 03/06 1000 AC 03/08 PO 917 Assessment/Plan Assessment: He is 61-year-old man with past medical history of coronary artery disease status post stent in 2011, paroxysmal A. fib not on any anticoagulation because of history of recurrent falls, alcohol abuse, hypothyroidism, hyperlipidemia, obstructive sleep apnea not on CPAP, depression has been admitted on general medicine floor for: 1. Recurrent falls (mechanical) 2. Intractable right shoulder pain 3. Alcohol withdrawal. His last drink 3 days prior to admission per patient 4. Generalized weakness and gait instability PLAN * Monitor vitals closely * Continue CIWA protocol * Finished Ativan taper today * Continue multivitamins/folic acid/thiamine * Adequate pain management * Ortho consult appreciated. Definite management of right shoulder pain as an outpatient * Continue Physical therapy * Continue other home medications * Short-term rehabilitation upon discharge * Subcutaneous Lovenox for DVT prophylaxis * Heart healthy diet * Full code Problem List: 1. Chronic pain syndrome 2. Alcohol dependence Pain Ratin Pain Location: Right shoulder Pain Goal: Pain 4 or less Pain Plan: PERCOCET Tomorrow's Labs & Rationales: Percocet, Roxicodone DVT/Prophylaxis: pharmacological MARKUS JOHNSON MD 03/08/17 1503: Attending MD Review Statement Attending Statement Attending MD Statement: examined this patient, discuss w/resident/PA/TECHNICAL PROPOSAL WRITER, agreed w/resident/PA/TECHNICAL PROPOSAL WRITER, reviewed EMR data (avail) Attending Assessment/Plan: 61M PMH CAD s/p stent 2011, ADHD, hypothyroidism, depression, alcohol dependence , VERONIKA noncompliant with nocturnal CPAP admitted for recurrent falls and gait instability. Complains of right shoulder pain and has a history of severe right shoulder joint degeneration for which he follows with Dr. Espinoza of orthopedics. Had appointment to see Dr. Varghese of neurology today for his falls and instability, which have worsened over the past 6 months. Otherwise no complaints, neurological exam is normal at this time, labs reviewed. 1. Recurrent falls 2. Right shoulder joint degeneration 3. Gait instability Plan - Continue on general medicine - Outpatient neurology and orthopedic follow up - Continue current medications - No evidence of alcohol withdrawal - DVT PPx - Anticipated discharge tomorrow. Please send CMR to pharmacy for review.
[2017-03-08 15:06] VITALS: BP 142/74
--- NOTE | 2017-03-08 15:37 | Patient Discharge Instructions ---
Discharge Instructions General Discharge Information You were seen/treated for: Mechanical fall Exacerbation of chronic right Shoulder pain Alcohol abuse Special Instructions: 1. Please follow-up with your primary care provider next week after discharge 2. Please follow-up with Dr. Espinoza next week after discharge 3. Please make an appointment with Dr. Floyd, neurologist next week after discharge Diet Continue normal diet: Yes Activity Activity Limited to: Walking with Assistance Acute Coronary Syndrome Inclusion Criteria At DC or during hospital stay patient has or had the following: ACS DIAGNOSIS No Discharge Core Measures Meds if any: Prescribed or Continued at Discharge Meds if any: NOT Prescribed or Continued at Discharge Congestive Heart Failure Inclusion Criteria At DC or during hospital stay patient has or had the following: CHF DIAGNOSIS No Discharge Core Measures Meds if any: Prescribed or Continued at Discharge Meds if any: NOT Prescribed or Continued at Discharge Cerebrovascular accident Inclusion Criteria At DC or during hospital stay patient has or had the following: CVA/TIA Diagnosis No Discharge Core Measures Meds if any: Prescribed or Continued at Discharge Meds if any: NOT Prescribed or Continued at Discharge Venous thromboembolism Inclusion Criteria VTE Diagnosis No VTE Type NONE VTE Confirmed by (Test) NONE Discharge Core Measures - Per Current guidelines, there needs to be overlap - treatment for the first 5 days of Warfarin therapy. - If discharged on Warfarin prior to 5 days of - overlap therapy, the patient will need to be - assessed for post discharge needs including - *Post discharge parental anticoagulation - *Warfarin and/or parental anticoagulation education - *Follow up date to check INR post discharge At least 5 days overlap therapy as Inpatient No Meds if any: Prescribed or Continued at Discharge Note: Overlap Therapy is Warfarin and Anticoagulant Meds if any: NOT Prescribed or Continued at Discharge
--- NOTE | 2017-03-08 15:53 | NUR ---
WOUND CARE: (LATE ENTRY 03/08/17 11 AM) REQUESTED BY NURSING TO EVALUATE PT FOR SKIN ALTERATIONS PRESENT ON ADMISSION TO MULTIPLE AREAS NOTED BELOW - UNABLE TO OBTAIN HX FROM PT - CHART REVIEW AND NURSE REPORT - PT HAD BEEN AT HOME ON FLOOR FOR UNKNOWN AMOUNT OF TIME - MULTIPLE ABRASIONS AND SCAPES NOTED FOLLOWED: KELSIE KNEES TRAUMATIC WOUNDS PRESEUMED SECONDARY TO ABRASIONS 3X2 CM THICK BROWN SCABS NO EVIDENCE OF INFECTION - NON DRNG - VERY SLIGHT PERIWOUND ERYTHEMA - KELSIE FEET EVIDENCE OF ? UNSTAGEABLE PRESSURE INJURIES TO ANTERIOR ASPECT OF 2ND, 3RD, AND 4TH TOES - PRESENT BROWN SCABBED AREAS WITH SL PERIWOUND ERYTHEMA - INTACT SKIN NON DRNG - UNKNOWN AT THIS TIME IF WOUNDS SECONDARY TO POOR FITTING FOOTWEAR VS ABRASIONS FROM CRAWLING ON FLOOR - PODIATRY MADE AWARE OF FINDINGS - PT ALSO NOTED WTIH SCABBED AREAS 2X0.8 CM TO KELSIE SHINS - COCCYX/ BUTTOCKS PRESENTS WITH EVIDENCE OF EVOLVING DTI - (2) PARTIAL THICKNESS WOUNDS 1 X 0.5 CM CLEAN PINK DERMAL FILL AND (4) LINEAR SHAPED DTI 3 X 0.4 CM - NO C/O VOICED IMPRESSION: TRAUMATIC WOUNDS KELSIE KNEES AND SHINS, DTI BUTTOCKS AND COCCYX, UNSTAGEABLE PRESSURE INJURIES KELSIE TOES RECOMMENDATION: PAINT TOE WOUNDS WITH BETADINE DAILY - APPLY MOISTURE BARRIER TO BUTTOCKS / COCCYX QS AND PRN AFTER INC EPISODES - CLEANSE KNEE WOUNDS WITH NS FB BACITRACIN OINTMENT, ADAPTIC AND DPD DAILY - PODIATRY F/U - SIZE [place] MATTRESS
[2017-03-08 22:27] VITALS: BP 138/78
[2017-03-09] VITALS: BP 138/78
[2017-03-09 06:00] VITALS: BP 130/84
[2017-03-09 06:56] VITALS: BP 130/84
--- NOTE | 2017-03-09 07:25 | PN- Housestaff ---
JDUY LUNA,DOLORES 03/09/17 0725: Subjective Follow-up For: Mechanical fall Exacerbation of chronic right Shoulder pain Alcohol abuse Subjective: Patient is comfortable with his AutoPAP overnight. He is aware about possible discharge today. Review of Systems Constitutional: Reports: see HPI. Objective Last 24 Hrs of Vital Signs/I&O Vital Signs Date Time Temp Pulse Resp B/P B/P Pulse O2 O2 Flow FiO2 Mean Ox Delivery Rate 03/09 1226 98.8 03/09 1219 98.8 78 20 128/78 03/09 0939 Room Air Room Air 03/09 0850 128/78 03/09 0825 20 95 Room Air 03/09 0656 99.5 78 18 130/84 97 Room Air 03/09 0600 99.5 78 18 130/84 03/09 0147 76 97 / 0000 98.6 81 19 138/78 05/ 0000 97 CPAP Room Air 03/08 2229 75 98 / 2227 98.6 81 19 138/78 96 Room Air 03/08 2113 81 138/78 03/08 1506 98.0 97 20 142/74 94 Room Air Intake & Output 03/09 1600 03/09 0800 05 0000 Intake Total 100 700 Output Total 50 Balance -50 100 700 Intake, IV 0 Intake, Oral 100 700 Number 1 Bowel Movements Output, Urine 50 Physical Exam General Appearance: Alert, Oriented X3, Cooperative, No Acute Distress Cardiovascular: Regular Rate, Normal S1, Normal S2 Lungs: Clear to Auscultation, Normal Air Movement Abdomen: Normal Bowel Sounds, Soft, No Tenderness Neurological: Normal Speech, Strength at 5/5 X4 Ext, Normal Tone, Sensation Intact Extremities: No Edema Current Medications: Current Medications Sig/Edward Start time Last Medication Dose Route Stop Time Status Admin Acetaminophen 650 MG Q6P PRN 03/05 2200 AC PO Aspirin Buffered 81 MG DAILY 03/06 1000 AC 03/09 PO 0850 Atorvastatin Calcium 40 MG DAILY 03/05 2146 AC 03/09 PO 0850 Enoxaparin Sodium 40 MG DAILY 03/08 1000 AC 03/09 SC 0850 Folic Acid 1 MG DAILY 03/06 1000 AC 03/09 PO 0850 Levothyroxine Sodium 0.05 MG DAILY AC 03/06 0700 AC 03/09 PO 0541 Lorazepam 0 Q1P PRN 03/05 2315 AC IV Metoprolol Succinate 50 MG BID 03/05 2200 AC 03/09 PO 0850 Mirtazapine 60 MG QPM 03/05 2200 AC 03/08 PO 2113 Oxycodone HCl 5 MG Q6P PRN 03/050 AC 03/07 PO 1637 Oxycodone/ 2 TAB Q6P PRN 03/050 AC 03/09 Acetaminophen PO 0541 Polyethylene Glycol 17 GM DAILY PRN 03/08 900 AC 03/08 PO 0918 Quetiapine Fumarate 200 MG QPM 03/05 2200 AC 03/08 PO 2113 Senna/Docusate Sodium 1 TAB BID PRN 03/08 900 AC 03/09 PO 0851 Sertraline HCl 50 MG DAILY 03/05 2147 AC 03/09 PO 0850 Thiamine HCl 100 MG DAILY 03/06 1000 AC 03/09 PO 0850 Lines/Diet/Fluids Lines: peripheral lines Assessment/Plan Assessment: He is 61-year-old man with past medical history of coronary artery disease status post stent in 2011, paroxysmal A. fib not on any anticoagulation because of history of recurrent falls, alcohol abuse, hypothyroidism, hyperlipidemia, obstructive sleep apnea not on CPAP, depression has been admitted on general medicine floor for: 1. Recurrent falls (mechanical) 2. Intractable right shoulder pain 3. Alcohol withdrawal. His last drink 3 days prior to admission per patient 4. Generalized weakness and gait instability PLAN * Monitor vitals closely * Continue CIWA protocol * Continue multivitamins/folic acid/thiamine * Adequate pain management * Ortho consult appreciated. Definite management of right shoulder pain as an outpatient * Continue Physical therapy * Continue other home medications * Short-term rehabilitation upon discharge * Subcutaneous Lovenox for DVT prophylaxis * Heart healthy diet * Full code Problem List: 1. Shoulder pain, right Pain Ratin Pain Location: Right shoulder Pain Goal: Pain 4 or less Pain Plan: Per EMR Tomorrow's Labs & Rationales: Patient to be discharged today DVT/Prophylaxis: pharmacological MARKUS JOHNSON MD 03/09/17 1102: Attending MD Review Statement Attending Statement Attending MD Statement: examined this patient, discuss w/resident/PA/STAGE TECHNICIAN, agreed w/resident/PA/STAGE TECHNICIAN, reviewed EMR data (avail) Attending Assessment/Plan: 61M PMH CAD s/p stent 2011, ADHD, hypothyroidism, depression, alcohol dependence , VERONIKA noncompliant with nocturnal CPAP admitted for recurrent falls and gait instability. Complains of right shoulder pain and has a history of severe right shoulder joint degeneration for which he follows with Dr. Espinoza of orthopedics. Had appointment to see Dr. Varghese of neurology today for his falls and instability, which have worsened over the past 6 months. Otherwise no complaints, neurological exam is normal at this time, labs reviewed. 1. Recurrent falls 2. Right shoulder joint degeneration 3. Gait instability Plan - Stable for discharge to [facility] - Outpatient neurology and orthopedic follow up - Continue current medications - No evidence of alcohol withdrawal
[2017-03-09] MEDS ORDERED: PERCOCET 5-3251 EACH PO (10:21)
--- NOTE | 2017-03-09 11:20 | Discharge Summary ---
Visit Information Visit Dates Admission Date: 03/05/17 Discharge Date: 03/09/2017 Hospital Course Course Attending Physician: MARKUS JOHNSON MD Primary Care Physician: NASRIN ROMERO MD Hospital Course: 61-year-old man with past medical history of Alcoholism, questionable seizures, CAD S/P stent, paroxysmal A. fib not on anticoagulation, hypothyroidism, HLD, VERONIKA not on CPAP, depression, ADHD and alcohol abuse presented to [facility] emergency department with complaint of mechanical fall and exacerbation of chronic right shoulder pain. Vitals: Afebrile, pulse, RRR, blood pressure, O2 saturation within acceptable range physical exam on admission: A O 3, cooperative, no acute distress, neck supple, JVD normal, no lymphadenopathy, mucosa moist, no dependent edema. CVS: S1-S2, RRR. RS: Clear to auscultate bilaterally. Abdomen: Soft, NT, ND, bowel sounds present. Patient has multiple superficial lacerations and abrasions in different stages of healing without signs of infection. Strength bilateral lower extremity 5/5, left upper extremity strength intact, mild limitation ROM on left shoulder, left elbow and wrist movement intact. Right shoulder severely restricted movements for abduction flexion, joint deformity, range of motion intact in elbow and wrist on right, medial aspect of right wrist has a superficial abrasion with mild surrounding redness and bony tenderness. Labs: CBC, BMP, LFT, troponin unremarkable CT head and CXR 1. No acute intracranial abnormality. 2. No acute cardiopulmonary findings. On 02/17/2017: MRI cervical spine 1. There has been interval development of anterolisthesis of C5 on C6. There is severe right and moderate left foraminal narrowing. There is no spinal cord compression. 2. There has been interval increase in the disc protrusions at C3-C4 and C4-C5. There is compression of the spinal cord at both these levels. There is moderate central stenosis at C3-C4 and [id number] central stenosis at C4-C5. 3. There is multilevel foraminal narrowing which appears most severe at C3-C4 and C4-C5, with milder narrowing at multiple other levels as described above. 4. There is equivocal signal within the spinal cord at C4-C5, which may be consistent with developing myelomalacia. 5. There are stable changes from ACDF at C6-C7. MRI right shoulder 1. Humeral head resorption with associated osseous fragments, diffuse proximal humerus and superior glenoid marrow edema, and a large joint effusion with synovitis/debris. These findings could be the sequela of a neuropathic joint, posttraumatic resorption, or a septic joint. 2. Supraspinatus and infraspinatus tendinosis. Subscapularis tendinosis with articular surface partial tearing. 3. Proximal biceps tendinosis. 4. Severe acromioclavicular osteoarthritis and lateral subacromial spurring. Subacromial subdeltoid bursitis. 5. Diffuse degenerative tearing of the labrum. He was admitted on general medicine floor for history of recurrent mechanical falls, gait instability and intractable right shoulder pain. Other concern was his alcohol abuse. His last drink was 3 days prior to admission. Orthopedics, Dr. Hussein was consulted for his right shoulder pain. According to his recommendations there was no need for inpatient consultation or intervention for his right shoulder pain. He had a chronic problem in the right shoulder consisting of severe erosion of the gleno humeral joint as well as tenderness and soft tissue problems. He recommended outpatient management of right shoulder pain. In hospital his pain was managed with opioids. For his alcohol abuse he was put on CIWA protocol. She was also started on scheduled Ativan and IV Ativan as needed per CIWA. He did not have any episodes of delirium or other signs of withdrawal. His CIWA score was zero in hospital. Ativan was tapered very quickly. He was also started on multivitamin, folic acid and thiamine. For his recurrent mechanical falls and gait instability he was seen by physical therapy. It was recommended by them that he should go to short-term rehabilitation upon discharge. His pain was well controlled later on. He was stable for discharge to short- term rehabilitation. Outpatient neurology and orthopedic referral was given. Allergies: Coded Allergies: NSAIDS (Non-Steroidal Anti-Inflamma (ULCERS 02/12/16) Disposition Summary Disposition Principal Diagnosis: 1. Recurrent falls 2. Right shoulder joint degeneration 3. Gait instability Additional Diagnosis: Alcohol detox Discharge Disposition: STR Discharge Instructions General Discharge Information Code Status: Full Code Patient's Diet: Heart healthy diet Patient's Activity: With assistance Follow-Up Instructions/Appts: 1. Please follow-up with your primary care provider next week after discharge 2. Please follow-up with Dr. Espinoza next week after discharge 3. Please make an appointment with Dr. Floyd, neurologist next week after discharge Medications at Discharge Discharge Medications: Continue taking these medications: Metoprolol Succinate (Metoprolol Succinate) 50 MG TAB.ER.24H 1 Tablet ORAL TWICE DAILY Days = 30 Levothyroxine Sodium (Levothyroxine Sodium) 50 MCG TABLET 1 Tablet ORAL DAILY Days = 30 Comments: Last Taken: 07/26/16 Time: 530 AM Aspirin (Ecotrin*) 81 MG TABLET. 81 Milligram ORAL DAILY Qty = 30 Comments: Last Taken: 07/26/16 Time: 945 AM Folic Acid (Folic Acid) 1 MG TABLET 1 Milligram ORAL DAILY Qty = 30 Comments: Last Taken: 07/26/16 Time: 945 AM Atorvastatin Calcium (Atorvastatin Calcium) 40 MG TABLET 1 Tablet ORAL DAILY Qty = 30 Dextroamphetamine/Amphetamine (Dextroamp-Amphetamin 30 MG Tab) 30 MG TABLET 1 Tablet ORAL THREE TIMES DAILY Qty = 60 Sertraline HCl (Sertraline HCl) 50 MG TABLET 1 Tablet ORAL DAILY Qty = 30 Quetiapine Fumarate (Quetiapine Fumarate) 200 MG TABLET 2 Tablet ORAL Every night Qty = 60 Mirtazapine (Mirtazapine) 30 MG TABLET 2 Tablet ORAL Every night Qty = 60 Albuterol Sulfate (Proair Hfa) 90 MCG HFA.AER.AD 2 Puff Inhale through mouth as needed for RESPIRATORY Qty = 85 Start taking the following new medications: Oxycodone HCl/Acetaminophen (Percocet 5-325 MG Tablet) 5 MG-325 MG TABLET 2 Tablet ORAL EVERY SIX HOURS NEEDED as needed for PAIN SCALE 7-10 ( SEVERE) Days = 10 No Refills Copies To: CAR LUNA,YAMEL Mcgovern; NICK LUNA,NASRIN Carroll; GABRIELA LUNA,JOSE MANUEL
[2017-03-09 12:19] VITALS: BP 128/78
== END 2017-03-09 13:09 | DRG 554 ==
LOC: ERH 15:26 → 2NB 20:01 → ERHI 20:01 → ENRESERV 20:42 → CANBEDREQ 21:09 → ENRESERV 22:16 → 2NB 23:07 → ENPENDDIS 03-09 10:48 → 2NB 03-09 13:09
PROVIDERS: Emergency Medicine; Internal Medicine Infectious Disease; ADMIT Internal Medicine
DX: M19.012 Primary osteoarthritis, left shoulder (principal); D53.1 Other megaloblastic anemias, not elsewhere classified; M19.011 Primary osteoarthritis, right shoulder; I48.0 Paroxysmal atrial fibrillation; I48.91 Unspecified atrial fibrillation; R53.1 Weakness; R26.9 Unspecified abnormalities of gait and mobility; F10.20 Alcohol dependence, uncomplicated; Z91.81 History of falling; I25.10 Atherosclerotic heart disease of native coronary artery without angina pectoris; E03.9 Hypothyroidism, unspecified; F90.9 Attention-deficit hyperactivity disorder, unspecified type; Z95.5 Presence of coronary angioplasty implant and graft; F17.200 Nicotine dependence, unspecified, uncomplicated; E78.5 Hyperlipidemia, unspecified; G47.33 Obstructive sleep apnea (adult) (pediatric)
CPT/HCPCS: 2NBP; 73030-RT; 73110-RT; 80307; 93005; 93010; 94799; 97110-GO; 97112-GO; 97162-GP; 97165-GO; 97530-GO; G0480; J1644; J1650; J3490

== ENCOUNTER 2017-04-01 10:27 | Emergency (ER) | payer OTHER, MEDICARE ==
[~2017-04-01] VITALS: Ht 185.4 cm; Wt 90.7 kg
[~2017-04-01 10:27] MED LIST changes: +ATORVASTATIN CA40 M1 PO; +DEXTROAMP-AMPHE30 MG PO; +MIRTAZAPINE30 M2 PO; +PERCOCET 5-3251 EACH PO; +PROAIR HFA8.5 GM INH; +QUETIAPINE FUM200 M1 PO; +SERTRALINE HCL50 MG PO
[2017-04-01 10:55] LABS: ABSOLUTE BASOPHIL COUNT 0 /CUMM (0.0-0.2); ABSOLUTE EOSINOPHIL COUNT 0 /CUMM (0.0-0.7); ABSOLUTE GRANULOCYTE CT 13.3 /CUMM (1.4-6.5); ABSOLUTE LYMPH COUNT 1.1 /CUMM (1.2-3.4); ABSOLUTE MONOCYTE COUNT 0.7 /CUMM (0.10-0.60); BASOPHIL % 0 % (0.0-2.0); EOSINOPHIL % 0.2 % (0-5); HEMATOCRIT 38.2 % (42-52); MEAN CORPUSCULAR HGB 30.3 PG (27.0-31.0); MEAN CORPUSCULAR HGB CONC 32.6 G/DL (33.0-37.0); MEAN CORPUSCULAR VOLUME 92.9 FL (80.0-94.0); MEAN PLATELET VOLUME 7.8 FL (7.4-10.4); PLATELET COUNT 391 /CUMM (130-400); RBC DISTRIBUTION WIDTH 16.3 % (11.5-14.5); RED BLOOD CELL CT 4.11 /CUMM (4.70-6.10); WHITE BLOOD CELL COUNT 15.1 /CUMM (4.8-10.8)
[2017-04-01] MEDS ORDERED: GABAPENTIN300 M2 PO (11:00)
--- NOTE | 2017-04-01 11:05 | ED MVC/FALL/TRAUMA COMPLAINT ---
History of Present Illness General Chief Complaint: Fall Stated Complaint: BIBA FALL Source: patient Exam Limitations: no limitations Vital Signs & Intake/Output Vital Signs & Intake/Output Vital Signs Date Time Temp Pulse Resp B/P B/P Pulse O2 O2 Flow FiO2 Mean Ox Delivery Rate 04/01 1532 Room Air Room Air 04/01 1331 98.6 76 18 157/73 98 Room Air 04/01 1031 98 Room Air 04/01 1031 97.1 80 15 139/75 99 Room Air Room Air Allergies Coded Allergies: NSAIDS (Non-Steroidal Anti-Inflamma (ULCERS 04/01/17) Reconcile Medications Albuterol Sulfate (Proair Hfa) 90 MCG HFA.AER.AD 2 PUF INH PRN RESPIRATORY ( Reported) Aspirin (Ecotrin*) 81 MG TABLET.DR 81 MG PO DAILY Heart Health Atorvastatin Calcium 40 MG TABLET 1 TAB PO DAILY CHOLESTEROL (Reported) Dextroamphetamine/Amphetamine (Dextroamp-Amphetamin 30 MG Tab) 30 MG TABLET 1 TAB PO TID ADHD (Reported) Folic Acid 1 MG TABLET 1 MG PO DAILY Vitamin Gabapentin 300 MG CAPSULE 1 CAP PO DAILY PAIN (Reported) Levothyroxine Sodium 50 MCG TABLET 1 TAB PO DAILY AC THYROID (Reported) Metoprolol Succinate 50 MG TAB.ER.24H 1 TAB PO BID HEART/BP (Reported) Mirtazapine 30 MG TABLET 2 TAB PO QPM MENTAL HEALTH (Reported) Oxycodone HCl/Acetaminophen (Percocet 5-325 MG Tablet) 5 MG-325 MG TABLET 2 TAB PO Q6P PRN PAIN SCALE 7-10 (SEVERE) Quetiapine Fumarate 200 MG TABLET 2 TAB PO QPM MENTAL HEALTH (Reported) Sertraline HCl 50 MG TABLET 1 TAB PO DAILY MENTAL HEALTH (Reported) Triage Note: PT BIBA FROM HOME FOR C/C OF UNABLE TO GET UP AT HOME. PT FELL LAST NIGHT AROUND 4PM. EMS FOUND PT PRONE WITH LEFT ARM PINNED UNDER PT. PT HAS CHRONIC R SHOULDER DISLOCATION THAT APPEARS TO BE DISLOCATED ON ARRIVAL WELL. PT REPORTS HE HIT HIS CHIN WHEN FALLING. MULTIPLE RED SPOTS/ ?RUG BURN TO TOPS OF TOES, L LATERAL [place], BILAT KNEES, L WRIST. REDNESS TO L FRONT RIB AREA, L CHEEK REDNESS. PER EMS, PT HAS HISTORY OF ETOH USE AND FOUND A HANDLE OF VODKA ALMOST EMPTY AT THE HOUSE. PT DENIES ETOH USE FOR THE LAST TWO MONTHS. RECENTLY DC'D FROM [facility]. PT REPORTS MOST OF PAIN IS TO R SHOULDER AND SOME PAIN TO BACK OF NECK. PT COLLARED IN ED FOR PRECAUTIONS. Triage Nurses Notes Reviewed? yes HPI: Patient presents for evaluation of injury sustained status post fall occurred yesterday afternoon while at home. Patient states that he was in a rehabilitation center and was released one week ago. He states he typically sleeps in a reclining chair but last night wanted to sleep in bed. Yesterday afternoon he slid off the bed attempting to reach his walker and was unable to get up due to issues with chronic right shoulder pain and prior knee abrasions. He states he was discovered by his home physical therapist when she came at about 10:00 this morning. Patient has no specific complaint at this time. He denies any acute injury. Past History Travel History Traveled to [facility] past 21 day No Medical History Any Pertinent Medical History? see below for history Neurological: seizure EENT: NONE Cardiovascular: CAD, STENT PLACEMENT 2011 Respiratory: obstructive sleep apnea Gastrointestinal: pancreatitis Hepatic: "ALCOHOLIC LIVER DISEASE" Renal: NONE Musculoskeletal: NONE Psychiatric: alcohol dependence, anxiety, depression Endocrine: hypothyroidism MANAGER NET/Reproductive: NONE History of MRSA: No History of VRE: No History of CDIFF: No Pneumonia Vaccine: 07/12/12 Tetanus Vaccine: 04/18/13 Surgical History Surgical History: CARDIAC STENTS Psychosocial History Who do you live with Patient/Self Services at Home None What is your primary language Georgian Tobacco Use: Current Not Daily ETOH Use: denies use Illicit Drug Use: denies illicit drug use Family History Family History, If Any: BROTHER FH: COPD (chronic obstructive pulmonary disease) FHx: colon cancer FHx: diabetes mellitus FATHER FH: heart attack Hx Contributory? No Review of Systems Review of Systems Constitutional: Reports: no symptoms. Eyes: Reports: no symptoms. Ears, Nose, Throat, Mouth: Reports: no symptoms. Respiratory: Reports: no symptoms. Cardiovascular: Reports: no symptoms. Gastrointestinal/Abdominal: Reports: no symptoms. Genitourinary: Reports: no symptoms. Skin: Reports: no symptoms. Neurological/Psychological: Reports: no symptoms. All Other Systems: Reviewed and Negative Physical Exam Physical Exam General Appearance: see below Comments: Gen.: Well-nourished, well-developed, no acute respiratory distress. Head: Normocephalic, atraumatic, nontender. Eyes: Normal inspection bilaterally, calixto, EOMI Ears: Normal inspection bilaterally Nose: Normal inspection Throat/mouth : Moist mucosa Neck: Posterior neck tenderness (c-collar placed in triage kept in place pending radiographs) Heart: Regular rate and rhythm, no murmurs rubs or gallops Lungs: Clear to auscultation bilaterally with normal air entry Chest: Nontender Back: Normal range of motion, nontender Abdomen: Soft, nontender, nondistended, normal bowel sounds Pelvis: Stable and nontender Extremities: Normal range of motion grossly, no tenderness, no cyanosis clubbing or edema Neurologic: Cranial nerves grossly intact, speech is clear Skin: warm and dry and without ecchymoses, scattered lower extremity skin ulcerations in various degrees of healing, left great toe amputation Psychiatric: Calm, cooperative, no apparent delusions or hallucinations Core Measures ACS in differential dx? No Severe Sepsis Present: No Septic Shock Present: No Progress Differential Diagnosis: sprain, strain, fracture, dislocation, CVA, dehydration, anemia, electrolyte abnormality, rhabdomyolysis Plan of Care: Orders Procedure Date/time Status PT Evaluate & Treat 04/01 1354 Active CASE MANAGEMENT CONSULT 04/01 1354 Active Add-on Test (ER Only) 04/01 1151 Active URINALYSIS 04/01 1104 Complete EKG 04/01 1104 Active TSH REFLEX 04/01 1045 Complete MAGNESIUM 04/01 1045 Complete TROPONIN LEVEL 04/01 1044 Complete ETHANOL 04/01 1044 Complete COMPREHENSIVE METABOLIC PANEL 04/01 1044 Complete CREATINE PHOSPHOKINASE 04/01 1044 Complete CBC WITHOUT DIFFERENTIAL 04/01 1044 Complete Theraputic Activities 15 Min 04/01 UNK Complete MOBILITY GOAL STATUS 04/01 UNK Complete MOBILITY CURRENT STATUS 04/01 UNK Complete Gait Training, 15 Min 04/01 UNK Complete PT EVAL LOW COMPLEX 20 MIN 04/01 UNK Complete Laboratory Tests 04/01/17 1330: Urinalysis LIGHT H, Urine Color YEL, Urine Clarity CLEAR, Urine pH 6.5, Ur Specific [place] 1.025, Urine Protein TRACE H, Urine Ketones 15 H, Urine Nitrite NEG, Urine Bilirubin NEG, Urine Urobilinogen 0.2, Ur Leukocyte Esterase NEG, Ur Microscopic SEDIMENT EXAMINED, Urine RBC 1-3, Urine WBC 1-3 H, Ur Epithelial Cells RARE, Urine Bacteria MANY H, Urine Hemoglobin NEG, Urine Glucose NEG 04/01/17 1105: TSH &T3 &Free T4 Intrp Cancelled 04/01/17 1104: Troponin I Cancelled 04/01/17 1045: Anion Gap 12, Estimated GFR > 60, BUN/Creatinine Ratio 25.0, Glucose 95, Calcium 9.6, Magnesium 1.8, Total Bilirubin 0.9, AST 42, ALT 33, Alkaline Phosphatase 107, Creatine Kinase 658 H, Troponin I < 0.01, Total Protein 6.9, Albumin 3.7, Globulin 3.2, Albumin/Globulin Ratio 1.2, TSH &T3 &Free T4 Intrp 1.120, CBC w Diff NO MAN DIFF REQ, RBC 4.11 L, MCV 92.9, MCH 30.3, RDW 16.3 H, MPV 7.8, Gran % 87.9 H, Lymphocytes % 7.3 L, Monocytes % 4.6, Eosinophils % 0.2, Basophils % 0 L, Absolute Granulocytes 13.3 H, Absolute Lymphocytes 1.1 L, Absolute Monocytes 0.7 H, Absolute Eosinophils 0, Absolute Basophils 0, PUBS MCHC 32.6 L, Serum Alcohol < 10.0 Diagnostic Imaging: Discussed w/RAD: CT Scan. Radiology Impression: PATIENT: SANDIE RODRIGES PRESENT AGE: 61 PATIENT ACCOUNT NO: [id number] : 54 LOCATION: [facility] ORDERING PHYSICIAN: SENTHIL REY MD SERVICE DATE: 04/01/17 EXAM TYPE: CAT - CT HEAD WO IV CONTRAST EXAMINATION: CT HEAD WITHOUT CONTRAST CLINICAL INFORMATION: Pain status post fall. COMPARISON: 03/05/2017. TECHNIQUE: Contiguous axial imaging was performed from the skull base to vertex without intravenous administration of contrast. Streak artifact at the cranial base somewhat limits evaluation. DLP: 1147 mGy-cm FINDINGS: There is no evidence of acute intracranial hemorrhage or territorial infarction. No abnormal mass effect or midline shift is seen. Walker to white matter differentiation is well preserved. No extra-axial fluid collections are identified. The ventricles are normal in size. There is no abnormal attenuation within the brain parenchyma. The osseous structures and soft tissues are normal. The visualized portions of the paranasal sinuses are well aerated. The mastoid air cells are also well- developed, however there is some increasing fluid inferiorly in the left mastoid air cells. This could be seen with mastoiditis. Clinical correlation recommended. There is septal deviation towards the right. IMPRESSION: No acute intracranial pathology. There is fluid inferiorly in the left mastoid air cells which has increased since the previous exam. Clinical correlation recommended. DICTATED BY: DAWN LR MD DATE/TIME DICTATED:04/01/171138 SPOUTING INSTALLER:MADI DATE/TIME TRANSCRIBED:04/01/171138 CONFIDENTIAL, DO NOT COPY WITHOUT APPROPRIATE AUTHORIZATION. <Electronically signed in Other Vendor System> SIGNED BY: DAWN LR MD 04/01/17 1150, PATIENT: SANDIE RODRIGES PRESENT AGE: 61 PATIENT ACCOUNT NO : [id number] : 54 LOCATION: [facility] ORDERING PHYSICIAN: SENTHIL REY MD SERVICE DATE: 04/01/17 EXAM TYPE: CAT - CT CERV SPINE WO IV CONTRAST EXAMINATION: CT CERVICAL SPINE WITHOUT CONTRAST CLINICAL INFORMATION: Posterior pain status post trauma. COMPARISON: 04/18/2013. TECHNIQUE: Multidetector helical CT acquisition of the cervical spine was obtained without IV contrast. Multiplanar reformats were acquired and utilized for image interpretation. DLP: 1147 mGy-cm FINDINGS: FINDINGS: There is anatomic alignment of the vertebral bodies and posterior elements with instrumented fusion changes from an anterior approach at the C6/C7 level without evidence of hardware complication. There is an intervertebral disc spacer with near solid bony fusion as well at this level. There is no acute fracture and there is no acute subluxation. The craniocervical and atlantoaxial articulations are unremarkable with productive degenerative changes. There are fairly advanced degenerative changes most notably involving the facet joints on the left side greater than right from the C3/C4 through C7/ T1 levels with significant foraminal narrowing at C3/C4 and 4/5 levels however most severe at the C5/C6 level on the left side greater than right with associated milder canal stenosis. Please see the recently performed cervical spine MRI dated 02/17/2017 for further information. There is no prevertebral soft tissue swelling. No significant soft tissue abnormality within the neck. The visualized lung apices are clear. IMPRESSION: No acute osseous abnormality within the cervical spine. Fairly advanced degenerative changes and postsurgical changes as noted above. Please see the recent cervical spine MRI report for further information. DICTATED BY: DAWN LR MD DATE/TIME DICTATED:1146 SPOUTING INSTALLER:MADI DATE/TIME TRANSCRIBED:04/01/171146 CONFIDENTIAL, DO NOT COPY WITHOUT APPROPRIATE AUTHORIZATION. <Electronically signed in Other Vendor System> SIGNED BY: DAWN LR MD 04/01/17 1202 Initial ED EKG: NSR, rate (60) Prior EKG: unchanged Comments: 04/01/2017 12:10:56 PM cervical collar removed. Patient treated with IV normal saline for his mild rhabdomyolysis. Plan ambulate to bathroom to provide a urine specimen and assess ambulatory capability. 04/01/2017 5:19:38 PM patient had difficulty ambulating to the bathroom, making him a poor candidate for outpatient management. He was amenable to a rehabilitation stay. Case management has obtained a bed for him at a rehabilitation facility. Departure Departure Disposition: ACUTE REHAB FACILITY Condition: Stable Clinical Impression Primary Impression: Gait instability Secondary Impressions: Chronic right shoulder pain Rhabdomyolysis Qualifiers: Rhabdomyolysis type: traumatic Encounter type: initial encounter Qualified Code: T79.6XXA - Traumatic ischemia of muscle, initial encounter Referrals: TRUDY LUNA,FOREIGN Anderson (PCP/Family) Departure Forms: Customer Survey General Discharge Information Critical Care Note Critical Care Note Critical Care Time: 30-74 min
[2017-04-01 11:21] LABS: GRANULOCYTE % 87.9 % (42.2-75.2)
--- NOTE | 2017-04-01 11:50 | CT SCAN REPORT ---
EXAMINATION: CT HEAD WITHOUT CONTRAST CLINICAL INFORMATION: Pain status post fall. COMPARISON: 03/05/2017. TECHNIQUE: Contiguous axial imaging was performed from the skull base to vertex without intravenous administration of contrast. Streak artifact at the cranial base somewhat limits evaluation. DLP: 1147 mGy-cm FINDINGS: There is no evidence of acute intracranial hemorrhage or territorial infarction. No abnormal mass effect or midline shift is seen. Walker to white matter differentiation is well preserved. No extra-axial fluid collections are identified. The ventricles are normal in size. There is no abnormal attenuation within the brain parenchyma. The osseous structures and soft tissues are normal. The visualized portions of the paranasal sinuses are well aerated. The mastoid air cells are also well-developed, however there is some increasing fluid inferiorly in the left mastoid air cells. This could be seen with mastoiditis. Clinical correlation recommended. There is septal deviation towards the right. IMPRESSION: No acute intracranial pathology. There is fluid inferiorly in the left mastoid air cells which has increased since the previous exam. Clinical correlation recommended.
--- NOTE | 2017-04-01 12:02 | CT SCAN REPORT ---
EXAMINATION: CT CERVICAL SPINE WITHOUT CONTRAST CLINICAL INFORMATION: Posterior pain status post trauma. COMPARISON: 04/18/2013. TECHNIQUE: Multidetector helical CT acquisition of the cervical spine was obtained without IV contrast. Multiplanar reformats were acquired and utilized for image interpretation. DLP: 1147 mGy-cm FINDINGS: FINDINGS: There is anatomic alignment of the vertebral bodies and posterior elements with instrumented fusion changes from an anterior approach at the C6/C7 level without evidence of hardware complication. There is an intervertebral disc spacer with near solid bony fusion as well at this level. There is no acute fracture and there is no acute subluxation. The craniocervical and atlantoaxial articulations are unremarkable with productive degenerative changes. There are fairly advanced degenerative changes most notably involving the facet joints on the left side greater than right from the C3/C4 through C7/T1 levels with significant foraminal narrowing at C3/C4 and 4/5 levels however most severe at the C5/C6 level on the left side greater than right with associated milder canal stenosis. Please see the recently performed cervical spine MRI dated 02/17/2017 for further information. There is no prevertebral soft tissue swelling. No significant soft tissue abnormality within the neck. The visualized lung apices are clear. IMPRESSION: No acute osseous abnormality within the cervical spine. Fairly advanced degenerative changes and postsurgical changes as noted above. Please see the recent cervical spine MRI report for further information.
[2017-04-01 19:02] VITALS: BP 132/71
== END 2017-04-01 19:21 ==
LOC: ERH 10:27
PROVIDERS: Emergency Medicine
DX: T79.6XXA Traumatic ischemia of muscle, initial encounter (principal); R26.9 Unspecified abnormalities of gait and mobility; G89.29 Other chronic pain; M25.511 Pain in right shoulder; W06.XXXA Fall from bed, initial encounter; Y93.89 Activity, other specified; Y92.009 Unspecified place in unspecified non-institutional (private) residence as the place of occurrence of the external cause
CPT/HCPCS: 81001; 93005; 93010; 97116-GP; 97161-GP; 97530-GP; G0480; G8978-GP; G8979-GP